=== PATIENT | female | born 1955 | race Caucasian/White ===

== ENCOUNTER 2018-06-15 17:24 | Inpatient (IN) ==
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
[2018-06-16] MEDS ORDERED: LORazepam 1 MG Tablet PO PRN (09:20)
[2018-06-16] MEDS ORDERED: Aluminum/Magnesium/Simethacone Susp 30 ML UDC PO PRN (09:20)
[2018-06-16] MEDS ORDERED: Haloperidol Inj 5 MG/ML Ampul IV.PUSH PRN (09:20)
[2018-06-16] MEDS ORDERED: Bisacodyl 10 MG Supp RECTAL PRN (09:20)
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
[2018-06-16] MEDS: Senna/Docusate Sodium 8.6/50 MG Tablet PO SCH (22:43)
[2018-06-17] MEDS: Folic Acid 1 MG Tablet PO SCH ×2 (08:50→21:49)
[2018-06-17] MEDS: levoFLOXacin 750 MG Tablet PO SCH ×2 (08:50→21:49)
[2018-06-17] MEDS: Senna/Docusate Sodium 8.6/50 MG Tablet PO SCH ×2 (08:52→21:16)
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
[2018-06-18] MEDS: levoFLOXacin 750 MG Tablet PO SCH (08:29)
[2018-06-18] MEDS: Folic Acid 1 MG Tablet PO SCH (08:29)
[2018-06-18] MEDS: Senna/Docusate Sodium 8.6/50 MG Tablet PO SCH ×2 (09:12→22:05)
--- NOTE | 2018-06-18 13:27 | P.PNPSY ---
Subjective Remarks: Pt seen and discussed with staff. Chart reviewed. She was admitted after SI attempt via OD with Elavil which required intubation.She has a hx of three previous suicide attempts. She has been isolative to her room wtih limited interactions or engagement in unit activities. She denies SI/HI today. She opened up to RN about feelings and fears related to divorce. She remains depressed and dysphoric. She is compliant with medications and denies side effects. Mental Status Examination Appearance: Appropriate Consciousness: Alert Orientation: x4 Motor Activity: Normal gait Speech: Unremarkable Language: Adequate Fund of Knowledge: Adequate Attention and Concentration: Adequate Memory: Unremarkable (Grossly intact on clinical exam) Mood: Sad, Anxious Affect: Flat Thought Process & Associations: Intact Thought Content: Appropriate Hallucination Type: None Delusion Type: None Suicidal Ideation: No (Unreliable to contract for safety) Suicidal Plan: No Suicidal Intention: No Homicidal Ideation: No Homicidal Plan: No Homicidal Intention: No Insight: Poor Judgment: Poor Assessment and Plan - Assessment (1) Adjustment disorder with mixed disturbance of emotions and conduct Code(s): F43.25 - Adjustment disorder with mixed disturbance of emotions and conduct Status: Acute (2) Alcohol use disorder Code(s): F10.10 - Alcohol abuse, uncomplicated Status: Acute - Plan Plan: continue current tx plan Justification for Continued Inpatient Stay: impairments in safety Request Healthcare Surrogate/Guardian Advocate?: No
[2018-06-19] MEDS: Folic Acid 1 MG Tablet PO SCH (08:58)
[2018-06-19] MEDS: levoFLOXacin 750 MG Tablet PO SCH (08:58)
[2018-06-19] MEDS: Senna/Docusate Sodium 8.6/50 MG Tablet PO SCH ×2 (09:57→21:11)
--- NOTE | 2018-06-19 11:00 | P.PNPSY ---
Subjective Remarks: Medical records reviewed and discussed with nursing staff. Antonino, RN and I met with patient in the hallway. Patient states that she is now back on her Cymbalta and Buspar which is helping. She endorses that she is sleeping well and eating . Denies SI/HI. Concerned about her discharge planning. Review of Systems All other systems reviewed negative except as stated in HPI Mental Status Examination Appearance: Appropriate Consciousness: Alert Orientation: x4 Motor Activity: Normal gait Speech: Unremarkable Language: Adequate Fund of Knowledge: Adequate Attention and Concentration: Adequate Memory: Unremarkable (Grossly intact on clinical exam) Mood: Sad, Anxious Affect: Flat Thought Process & Associations: Intact Thought Content: Appropriate Hallucination Type: None Delusion Type: None Suicidal Ideation: No (Unreliable to contract for safety) Suicidal Plan: No Suicidal Intention: No Homicidal Ideation: No Homicidal Plan: No Homicidal Intention: No Insight: Fair Judgment: Impulsive Assessment and Plan - Assessment (1) Major depressive disorder Code(s): F32.9 - Major depressive disorder, single episode, unspecified Status : Acute (2) Alcohol use disorder Code(s): F10.10 - Alcohol abuse, uncomplicated Status: Acute - Plan Plan: continue current tx plan Justification for Continued Inpatient Stay: Moving patient to a less restrictive environment may result in her decompensation. Request Healthcare Surrogate/Guardian Advocate?: No
[2018-06-20 05:22] VITALS: BP 144/88; PULSE 65; RESP 17; TEMP 98.4; O2SAT 98
[2018-06-20] MEDS: Folic Acid 1 MG Tablet PO SCH (08:59)
[2018-06-20] MEDS: Senna/Docusate Sodium 8.6/50 MG Tablet PO SCH (08:59)
[2018-06-20] MEDS: levoFLOXacin 750 MG Tablet PO SCH (08:59)
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
== END 2018-06-20 14:00 | disposition home or self-care (01) ==
LOC: NEDAMB 17:24 → H270 06-16 09:20 → NEPJ 06-16 10:13 → H260 06-17 15:17
PROVIDERS: ADMIT Psychiatry & Neurology Psychiatry; ATTEND Psychiatry & Neurology Psychiatry